=== PATIENT | female | born 1975 | race American Indian/Alaskan Native ===

== ENCOUNTER 2016-08-18 14:39 | Outpatient (CLI) | payer MEDICAID ==
--- NOTE | 2016-08-18 15:23 | XRay Report ---
Right knee 3 views: History: Knee pain. Findings: No definite bony or articular abnormality. No fracture or dislocation. No definite joint effusion. There is however exostoses/ossification noted at the lateral aspect of the distal diaphysis of right femur. Impression: Findings as detailed above.
== END 2016-08-18 14:40 | disposition home or self-care (01) ==
LOC: XRAY 14:39
PROVIDERS: ATTEND Internal Medicine
DX: M61.551 Other ossification of muscle, right thigh (principal); M25.561 Pain in right knee

== ENCOUNTER 2017-08-21 01:23 | Emergency (ER) | payer MEDICAID ==
[2017-08-21] MEDS ORDERED: NACL 0.9% 1000 ML 1,000 ML IV ONE (02:18)
[2017-08-21] MEDS ORDERED: MOTRIN ONE (02:34)
[2017-08-21] MEDS ORDERED: MOTRIN PO ONE (02:40)
[2017-08-21 02:54] LABS: Basophils % (Auto) 0.5 % (0.0-1.8); Eosinophils % (Auto) 0.5 % (0.0-4.3); Hemoglobin 11.8 gm/dl (10.1-14.3); Lymphocytes # (Auto) 0.9 K/mm3 (1.2-5.4); Lymphocytes % (Auto) 10.2 % (13.4-35.0); Mean Corpuscular HGB Conc 34 % (30-34); Mean Corpuscular Hemoglobin 31 pg (28-32); Mean Corpuscular Volume 92 fl (79-97); Monocytes # (Auto) 0.4 K/mm3 (0.0-0.8); Monocytes % (Auto) 4.4 % (0.0-7.3); Platelet Count 310 K/mm3 (140-440); Red Blood Count 3.82 M/mm3 (3.65-5.03); Red Cell Distribution Width 16.2 % (13.2-15.2)
[2017-08-21 03:17] LABS: Alanine Aminotransferase 6 units/L (7-56); Albumin 4.1 g/dL (3.9-5); BUN/Creatinine Ratio 8; Blood Urea Nitrogen 5 mg/dL (7-17); Calcium 8.9 mg/dL (8.4-10.2); Hemolysis Index 2
[2017-08-21] MEDS ORDERED: TORADOL IV ONE (03:59)
--- NOTE | 2017-08-21 04:01 | Emergency Department Report ---
ED Abdominal Pain HPI - General Chief Complaint: Abdominal Pain Stated Complaint: ABD PAIN Time Seen by Provider: 08/21/17 03:46 Source: patient Mode of arrival: Ambulatory Limitations: No Limitations - History of Present Illness Initial Comments: No history of medical illness. No history of surgeries. MD Complaint: abdominal pain -: Gradual, hour(s) (several hours since 8 PM) Location: RLQ, epigastric Radiation: RUQ, RLQ Migration to: RUQ, RLQ Severity: severe Severity scale (0 -10): 10 Quality: cramping, stabbing, sharp Consistency: constant Improves With: other (mild improvement with ibuprofen) Context: other (1 hour prior to the onset of pain, patient ate [place] [employer]) - Related Data Previous Rx's Medication Instructions Recorded Last Taken Type HYDROcodone/APAP 5-325 [[place] 1 each PO Q4HR PRN #10 tablet 08/21/17 Unknown Rx 5/325] Allergies Allergy/AdvReac Type Severity Reaction Status Date / Time No Known Allergies Allergy Unverified 08/18/16 14:39 ED Review of Systems ROS: Stated complaint: ABD PAIN Other details as noted in HPI Comment: All other systems reviewed and negative Constitutional: denies: fever, malaise Respiratory: denies: cough Cardiovascular: denies: chest pain ED Past Medical Hx - Past Medical History Previous Medical History?: No - Surgical History Past Surgical History?: No - Social History Smoking Status: Current Every Day Smoker Substance Use Type: None - Medications Home Medications: Home Medications Medication Instructions Recorded Confirmed Last Taken Type HYDROcodone/APAP 5-325 [[place] 1 each PO Q4HR PRN #10 tablet 08/21/17 Unknown Rx 5/325] ED Physical Exam - General Limitations: No Limitations General appearance: alert, in no apparent distress - Head Head exam: Present: atraumatic, normocephalic - Eye Eye exam: Present: normal appearance. Absent: scleral icterus, conjunctival injection - ENT ENT exam: Present: mucous membranes moist - Neck Neck exam: Present: normal inspection. Absent: tenderness, meningismus - Respiratory Respiratory exam: Present: normal lung sounds bilaterally. Absent: respiratory distress, wheezes, rales, rhonchi - Cardiovascular Cardiovascular Exam: Present: regular rate, normal rhythm, normal heart sounds. Absent: systolic murmur, diastolic murmur, rubs, gallop - GI/Abdominal GI/Abdominal exam: Present: soft, normal bowel sounds. Absent: distended, tenderness, guarding, rebound - Extremities Exam Extremities exam: Present: normal inspection - Back Exam Back exam: Present: normal inspection - Neurological Exam Neurological exam: Present: alert, oriented X3 - Psychiatric Psychiatric exam: Present: normal affect, normal mood - Skin Skin exam: Present: warm, dry, intact, normal color. Absent: rash ED Course Vital Signs 08/21/17 08/21/17 08/21/17 02:13 03:00 04:39 Temperature 98.4 F 98.4 F Pulse Rate 83 65 Respiratory 18 18 18 Rate Blood Pressure 154/104 Blood Pressure 149/91 [Left] O2 Sat by Pulse 98 100 Oximetry ED Medical Decision Making - Lab Data Result diagrams: 08/21/17 02:30 08/21/17 02:30 - Medical Decision Making Ms. Grossman is a healthy female who presents with moderately severe abdominal pain. Differential diagnosis includes biliary colic versus appendicitis. My colleague will follow-up CT results. My colleague will determine appropriate disposition. Critical care attestation.: If time is entered above; I have spent that time in minutes in the direct care of this critically ill patient, excluding procedure time. ED Disposition Clinical Impression: Abdominal pain Disposition: DC-30 STILL A PATIENT Is pt being admited?: No Does the pt Need Aspirin: No Condition: Stable Instructions: Abdominal Pain (ED) Prescriptions: HYDROcodone/APAP 5-325 [[place] 5/325] 1 each PO Q4HR PRN #10 tablet PRN Reason: Pain Referrals: PRIMARY CARE, [Primary Care Provider] - 3-5 Days
[2017-08-21] MEDS ORDERED: ZOFRAN IV ONE (04:26)
[2017-08-21 06:15] VITALS: BP 138/91
--- NOTE | 2017-08-21 06:18 | Cat Scan Report ---
FINAL REPORT EXAM: CT ABDOMEN PELVIS W CON HISTORY: right upper quadrant and right lower quadrant pain TECHNIQUE: Routine axial imaging was obtained of the abdomen and pelvis following the intravenous injection of 100 cc of Omnipaque 350. Delayed imaging was obtained through the kidneys ureters and bladder. Sagittal and coronal reconstructions were reviewed. FINDINGS: The lung bases are clear. Pleural fluid is not seen. The liver, gallbladder, biliary tree, pancreas, spleen, and adrenal glands appear normal. The kidneys enhance normally. There is no evidence of hydronephrosis. The abdominal aorta and vascular structures enhance normally. There is no evidence of free fluid or or adenopathy. The bowel loops are normal in caliber and course. The appendix is not identified with certainty. There is no evidence of any inflammatory process in the right lower quadrant. In the pelvis the uterus and bladder appear normal. There are bilateral ovarian cysts the larger on the right side measuring 19 mm in diameter. There is minimal free fluid in cul-de-sac. IMPRESSION: Small bilateral functional ovarian cyst with minimal free fluid in cul-de-sac Appendix not identified. No evidence of any inflammatory process in the right lower quadrant No acute process in the upper abdomen.
== END 2017-08-21 07:30 | disposition still patient (30) ==
LOC: ED 01:23
DX: R10.31 Right lower quadrant pain (principal); R10.11 Right upper quadrant pain; R10.13 Epigastric pain; F17.200 Nicotine dependence, unspecified, uncomplicated
CPT/HCPCS: 36415; 74177; 80053; 84702; 85025; 96374; 96375; 99284; J1885; J2405; J7030; Q9967

== ENCOUNTER 2017-08-22 04:02 | Emergency (ER) | payer MEDICAID ==
[2017-08-22] MEDS ORDERED: TORADOL ONE (04:37)
[2017-08-22 04:43] LABS: Basophils % (Auto) 0.2 % (0.0-1.8); Eosinophils % (Auto) 0.3 % (0.0-4.3); Hematocrit 36.1 % (30.3-42.9); Hemoglobin 12.1 gm/dl (10.1-14.3); Lymphocytes # (Auto) 1.1 K/mm3 (1.2-5.4); Lymphocytes % (Auto) 7.2 % (13.4-35.0); Mean Corpuscular HGB Conc 33 % (30-34); Mean Corpuscular Hemoglobin 31 pg (28-32); Mean Corpuscular Volume 92 fl (79-97); Monocytes # (Auto) 0.7 K/mm3 (0.0-0.8); Monocytes % (Auto) 4.4 % (0.0-7.3); Platelet Count 311 K/mm3 (140-440); Red Blood Count 3.94 M/mm3 (3.65-5.03); Red Cell Distribution Width 16.1 % (13.2-15.2)
[2017-08-22] MEDS ORDERED: TORADOL IV ONE ×2 (04:53→10:45)
[2017-08-22 05:02] LABS: Alanine Aminotransferase 6 units/L (7-56); Albumin 4.1 g/dL (3.9-5); BUN/Creatinine Ratio 7; Blood Urea Nitrogen 5 mg/dL (7-17); Calcium 9.3 mg/dL (8.4-10.2); Hemolysis Index 5
[2017-08-22] MEDS ORDERED: ZOSYN/NS 4.5GM/100ML 4.5 GM/100 ML VIAL IV ONE (06:53)
[2017-08-22] MEDS ORDERED: NACL 0.9% 1000 ML 1,000 ML IV ONE (06:53)
[2017-08-22] MEDS ORDERED: MORPHINE IV ONE (06:53)
[2017-08-22] MEDS ORDERED: ZOFRAN IV ONE (06:53)
--- NOTE | 2017-08-22 06:59 | Emergency Department Report ---
ED Abdominal Pain HPI - General Chief Complaint: Abdominal Pain Stated Complaint: SEVERE STOMACH PAIN, CHILLS, VOMITING Time Seen by Provider: 08/22/17 06:43 Source: patient Mode of arrival: Ambulatory Limitations: No Limitations - History of Present Illness Initial Comments: Patient is 41 years old female with no significant past medical history. This is her second visit to the ER in the last 2 days for the same complaint. Patient presented to the ER complaining of abdominal pain mainly to the right side and suprapubic. Pain associated with nausea and vomiting. No diarrhea. Patient stated that she did have fever when she came here yesterday. Patient also reported that her urination is painful. Patient denied any chest pain or other complaint. Patient had a CT scan of the abdomen and pelvis that showed no acute finding. WBCs is higher today. MD Complaint: abdominal pain -: days(s) Location: diffuse Radiation: none Migration to: no migration Severity: moderate Severity scale (0 -10): 4 Quality: sharp Associated Symptoms: nausea, vomiting. denies: diarrhea - Related Data Previous Rx's Medication Instructions Recorded Last Taken Type HYDROcodone/APAP 5-325 [[place] 1 each PO Q4HR PRN #10 tablet 08/21/17 Unknown Rx 5/325] Allergies Allergy/AdvReac Type Severity Reaction Status Date / Time No Known Allergies Allergy Verified 08/22/17 04:16 ED Review of Systems ROS: Stated complaint: SEVERE STOMACH PAIN, CHILLS, VOMITING Other details as noted in HPI Comment: All other systems reviewed and negative Constitutional: fever Respiratory: denies: cough, orthopnea, shortness of breath, SOB with exertion Cardiovascular: denies: chest pain, palpitations Gastrointestinal: abdominal pain, nausea, vomiting. denies: diarrhea, constipation, hematemesis, melena, hematochezia Genitourinary: dysuria, frequency Musculoskeletal: denies: back pain Neurological: denies: headache, weakness, numbness, paresthesias ED Past Medical Hx - Past Medical History Previous Medical History?: No - Surgical History Additional Surgical History: left knee - Social History Smoking Status: Current Every Day Smoker Substance Use Type: Marijuana - Medications Home Medications: Home Medications Medication Instructions Recorded Confirmed Last Taken Type HYDROcodone/APAP 5-325 [[place] 1 each PO Q4HR PRN #10 tablet 08/21/17 08/22/17 Unknown Rx 5/325] ED Physical Exam - General Limitations: No Limitations General appearance: alert, in no apparent distress - Head Head exam: Present: atraumatic, normocephalic, normal inspection - Eye Eye exam: Present: normal appearance - ENT ENT exam: Present: normal exam, normal orophraynx, mucous membranes moist - Neck Neck exam: Present: normal inspection, full ROM. Absent: tenderness, meningismus, lymphadenopathy, thyromegaly - Respiratory Respiratory exam: Present: normal lung sounds bilaterally - Cardiovascular Cardiovascular Exam: Present: regular rate, normal rhythm, normal heart sounds - GI/Abdominal GI/Abdominal exam: Present: soft, tenderness (diffuse but mainly suprapubic area ), normal bowel sounds. Absent: distended, guarding, rebound, rigid, organomegaly, mass, bruit, pulsatile mass, hernia - Extremities Exam Extremities exam: Present: normal inspection, full ROM, normal capillary refill. Absent: tenderness, pedal edema, joint swelling, calf tenderness - Back Exam Back exam: Present: normal inspection, full ROM. Absent: tenderness, CVA tenderness (R), CVA tenderness (L), muscle spasm, paraspinal tenderness, vertebral tenderness, rash noted - Neurological Exam Neurological exam: Present: alert, oriented X3, CN II-XII intact, normal gait, reflexes normal - Skin Skin exam: Present: warm, intact, normal color ED Course Vital Signs 08/22/17 08/22/17 08/22/17 04:04 04:16 04:57 Temperature 98.3 F 98.3 F Pulse Rate 99 H 107 H Respiratory 14 14 18 Rate Blood Pressure 134/93 134/93 Blood Pressure [Left] O2 Sat by Pulse 100 98 Oximetry 08/22/17 08/22/17 08/22/17 06:42 06:49 07:01 Temperature 98.1 F Pulse Rate 71 Respiratory 16 Rate Blood Pressure 149/96 Blood Pressure 136/89 [Left] O2 Sat by Pulse 98 98 91 Oximetry 08/22/17 08/22/17 08/22/17 07:19 07:41 08:01 Temperature 98.1 F Pulse Rate 80 Respiratory 18 Rate Blood Pressure 149/96 149/96 Blood Pressure 149/96 [Left] O2 Sat by Pulse 99 100 99 Oximetry 08/22/17 08/22/17 08/22/17 08:30 09:00 09:30 Temperature Pulse Rate Respiratory 18 18 Rate Blood Pressure 145/87 147/83 Blood Pressure [Left] O2 Sat by Pulse 92 87 Oximetry - Reevaluation(s) Reevaluation #1: 08/22/17 10:45 ED Medical Decision Making - Lab Data Result diagrams: 08/22/17 04:32 08/22/17 04:32 - Radiology Data Radiology results: report reviewed Referring Physician: BÁRBARA GARCIA Patient Name: OLVIN APPLE Date of : 1975 Sex: Female Report Date: 2017-08-22 Report Status: Finalized Findings [facility] [address] [place] [address] Ultrasound Report Signed Patient: OLVIN APPLE MR#: [id number] : 1975 Acct:[id number] Age/Sex: 41 / F ADM Date: 08/22/17 Loc: ED Attending Dr: Ordering Physician: BÁRBARA GARCIA Date of Service: 08/22/17 Procedure(s): US abdomen limited Accession Number(s): [id number] cc: BÁRBARA GARCIA FINAL REPORT EXAM: US ABDOMEN LIMITED HISTORY: right upper quadrant pain, gallbladder ultrasound TECHNIQUE: Routine imaging was obtained of the right upper outer quadrant. FINDINGS: The gallbladder is normal in size and wall thickness. Stones are not seen. The common bile duct measures 4.3 mm which is normal. The liver is normal in size and echotexture. The pancreas is not well visualized. The right kidney is normal size contour and echotexture measuring 10.2 cm x 4.5 cm by 4.9 cm. There is no evidence of hydronephrosis. Proximally the abdominal aorta measures 1.8 cm in diameter. IMPRESSION: Normal exam. Transcribed By: RB Dictated By: MARNI JOHNSON MD Electronically Authenticated By: MARNI JOHNSON MD Signed Date/Time: 08/22/17755 DD/ 5 TD/TT: 08/22/17755 - Medical Decision Making Patient stated that her symptoms is much better now. No nausea or vomiting. Abdomen is soft nontender. Right upper quadrant ultrasound did not show any evidence of acute cholecystitis. I reviewed patient's CT abdomen and pelvis with IV contrast from yesterday which she also did not show anything acute. I noticed that patient WBC is 15. No clinical, laboratory or CT evidence of appendicitis or acute process in abdomen. I strongly advised the patient follow -up with primary care physician on Thursday and to follow-up with a GI doctor has been referred. I also strongly advised the patient to return to the ER if her symptoms are not improving. 08/22/17 10:47 Critical care attestation.: If time is entered above; I have spent that time in minutes in the direct care of this critically ill patient, excluding procedure time. ED Disposition Clinical Impression: Abdominal pain Disposition: DC-01 TO HOME OR SELFCARE Is pt being admited?: No Condition: Stable Instructions: Abdominal Pain (ED) Referrals: PRIMARY CARE, [Primary Care Provider] - 3-5 Days
[2017-08-22 07:54] LABS: Bacteria,Urine 1+ /HPF (Negative); Bilirubin,Urine NEG (Negative); Blood,Urine NEG (Negative); Color,Urine Amber (Yellow); Mucus,Urine 3+ /HPF
--- NOTE | 2017-08-22 08:00 | Ultrasound Report ---
FINAL REPORT EXAM: US ABDOMEN LIMITED HISTORY: right upper quadrant pain, gallbladder ultrasound TECHNIQUE: Routine imaging was obtained of the right upper outer quadrant. FINDINGS: The gallbladder is normal in size and wall thickness. Stones are not seen. The common bile duct measures 4.3 mm which is normal. The liver is normal in size and echotexture. The pancreas is not well visualized. The right kidney is normal size contour and echotexture measuring 10.2 cm x 4.5 cm by 4.9 cm. There is no evidence of hydronephrosis. Proximally the abdominal aorta measures 1.8 cm in diameter. IMPRESSION: Normal exam.
[2017-08-22] MEDS ORDERED: SUBLIMAZE ONE (08:50)
[2017-08-22] MEDS ORDERED: SUBLIMAZE IV ONE (08:51)
[2017-08-22 10:59] VITALS: BP 131/86
== END 2017-08-22 10:59 | disposition home or self-care (01) ==
LOC: ED 04:02
DX: R10.84 Generalized abdominal pain (principal); F17.200 Nicotine dependence, unspecified, uncomplicated; F12.90 Cannabis use, unspecified, uncomplicated
CPT/HCPCS: 36415; 76705; 80053; 81001; 85025; 96361; 96365; 99284; J1885; J2270; J2405; J2543; J3010; J7030